=== PATIENT | female | born 1970 | race Caucasian/White ===

== ENCOUNTER 2017-08-31 19:30 | Emergency (ER) | payer OTHER ==
[2017-08-31] MEDS ORDERED: Lidocaine 2% with EPINEPHrine 1:100,000 20 ML MDV INJECT ONE (19:35)
--- NOTE | 2017-08-31 19:43 | EDM.PDOC ---
ED HPI GENERAL MEDICAL PROBLEM - General Chief Complaint: Laceration Stated Complaint: FELL CUT HAND Time Seen by Provider: 08/31/17 19:32 Source of Information: Reports: Patient, Family, RN, RN Notes Reviewed History Limitations: Reports: No Limitations - History of Present Illness INITIAL COMMENTS - FREE TEXT/NARRATIVE: Patient presents to the ED at [facility] after she sustained a laceration to the palmar surface of the right hand. Patient states she was walking on a retaining walk when she fell, landing on her right hand. She believes the laceration was caused by a rock. No head injury or trauma. No previous injury to the right hand. Patient denies any numbness, tingling, or paresthesia the the right upper extremity. She denies any problems with ROM. Onset: Today, Sudden Onset Date: 08/31/17 ED ROS GENERAL - Review of Systems Review Of Systems: See Below Constitutional: Denies: Fever, Chills Respiratory: Denies: Shortness of Breath, Cough Cardiovascular: Denies: Chest Pain, Palpitations Musculoskeletal: Reports: Hand Pain Skin: Reports: Wound (cut to the palm of the right hand) Neurological: Reports: No Symptoms ED EXAM, SKIN/RASH Exam: See Below Exam Limited By: No Limitations General Appearance: Alert, No Apparent Distress Head: Atraumatic, Normocephalic Respiratory/Chest: No Respiratory Distress, Lungs Clear, Normal Breath Sounds Cardiovascular: Normal Peripheral Pulses, Regular Rate, Rhythm Peripheral Pulses: 2+: Radial (L), Radial (R) Neurological: Alert, Oriented Skin: Wound/Incision (1.5cm vertical laceration to the palmar surface of the right hand; low grade venous ooze, clean laceration; will require surgical closure for optimal wound healing) Location, Skin: Upper Extremity, Right ED SKIN PROCEDURES - Laceration/Wound Repair Right Hand Lac/Wound length In cm: 1.5 Appearance: Subcutaneous, Linear, Clean Distal NVT: Neuro & Vascular Intact, No Tendon Injury Anesthetic Type: Local Local Anesthesia - Lidocaine (Xylocaine): 2% with EPI Local Anesthetic Volume: 5cc Skin Prep: Chlorhexidine (Hibiciens), Saline Exploration/Debridement/Repair: Wound Explored, In a Bloodless Field, Explored to Base, No Foreign Material Found Closed with: Sutures Suture Size: 4-0 # of Sutures: 4 Suture Type: Nylon, Interrupted, Simple Sterile Dressing Applied: Provider Tetanus Status Addressed: Yes Complications: No Course - Orders/Labs/Meds Meds: Medications Discontinued Medications Generic Name Dose Route Start Last Admin Trade Name Marc PRN Reason Stop Dose Admin Lidocaine/Epinephrine 20 ml 08/31/17 19:35 08/31/17 20:00 Xylocaine 2% With Epinephrine 1:100,000 INJECT 08/31/17 19:36 5 ml ONETIME ONE Administration Departure - Departure Time of Disposition: 20:13 Disposition: Home, Self-Care 01 Condition: Good Clinical Impression: Need for [id number] (Tdap) vaccine Hand laceration Qualifiers: Encounter type: initial encounter Foreign body presence: without foreign body Laterality: right Qualified Code(s): S61.411A - Laceration without foreign body of right hand, initial encounter - Discharge Information *PRESCRIPTION DRUG MONITORING PROGRAM REVIEWED*: Not Applicable *COPY OF PRESCRIPTION DRUG MONITORING REPORT IN PATIENT [place]: Not Applicable Instructions: VIS, Tetanus, Diphtheria (Td); Tetanus, Diphtheria, Pertussis ( Tdap) - CDC, Sutured Wound Care Forms: ED Department Discharge Additional Instructions: 1. Stay well hydrated and rest 2. Keep area clean and dry 3. Keep band aid on over night, then remove 4. Watch for symptoms of infectin 5. Your TdaP was updated today 6. See your Primary in 10 days for recheck and suture removal 7. Call us with any questions or concerns - Problem List Review Problem List Initiated/Reviewed/Updated: Yes - Assessment/Plan Assessment:: Hand laceration Plan: 4 Nylon sutures placed without problems. Wound/suture care discussed. Remove sutures in 10 days.
[2017-08-31] MEDS ORDERED: Diphtheria,Pertussis(Acell),Tetanus Vaccine 0.5 ML Syringe IM ONE (20:15)
== END 2017-08-31 20:30 | disposition home or self-care (01) ==
LOC: VM.ED 19:30
DX: S61.411A Laceration without foreign body of right hand, initial encounter (principal); Z23 Encounter for immunization; W18.30XA Fall on same level, unspecified, initial encounter
CPT/HCPCS: 12001; 90471; 90715; 99282